=== PATIENT | female | born 1960 | race Asian ===

== ENCOUNTER → 2016-12-17 | Outpatient (CLI) | payer BC ==
[~2016-12-17] VITALS: Ht 156.8 cm; Wt 74.4 kg
[~2016-12-17] MED LIST: COZAAR50 MG PO; LEVO-T100 MCG PO; SIMVASTATIN20 MG PO; VENTOLIN HFA18 GM IH; XYZAL5 MG PO
== END | disposition home or self-care (01) ==
LOC: AMB 10-26 07:30 → OPR 10-26 07:30 → AMB 10-26 09:00
PROC: 0DBE8ZZ Excision of Large Intestine, Via Natural or Artificial Opening Endoscopic (ICD-10-PCS; principal; 2016-12-17)
DX: Z09 Encounter for follow-up examination after completed treatment for conditions other than malignant neoplasm (principal); D12.3 Benign neoplasm of transverse colon; Z86.010 Personal history of colon polyps; K64.8 Other hemorrhoids; I10 Essential (primary) hypertension; E78.5 Hyperlipidemia, unspecified; R73.09 Other abnormal glucose
CPT/HCPCS: 88305; 93005